=== PATIENT | female | born 1970 | race African-American/Black ===

== ENCOUNTER 2021-11-20 07:25 | Outpatient (CLI) | payer OTHER ==
[~2021-11-20] VITALS: Ht 160 cm; Wt 92.3 kg
[~2021-11-20 07:25] MED LIST: ALLEGRA 60MG TA60 MG PO; MASON NATURAL2000 IU PO; METOPROLOL; NORVASC; NORVASC 10MG10 MG PO; PRENATAL1 TA1 PO; SINGULAIR 110 MG/TAB PO; TOPROL XL100 MG PO; VITAMIN D; [UNRECOGNIZED DRUG - OTHER] PO
[2021-11-20 08:09] LABS: HEMOGLOBIN 10.9 g/dl (12.5-16.0); MEAN CELL VOLUME 81 fl (80.0-100.0); MEAN CORPUSCULAR HEMOGLOBIN 27 pg (27-31); MEAN CORPUSCULAR HGB CONC 33 g/dl (33.0-37.0); MEAN PLATELET VOLUME 10.2 fl (7.4-10.4); PLATELET COUNT 183 K/mm3 (130-400); RED BLOOD COUNT 4.12 M/mm3 (4.10-5.30); REDCELL DISTRIBUTION WIDTH-CV 14.6 % (11.5-14.5)
[2021-11-20 08:11] LABS: HEMATOCRIT 33.3 % (37.0-47.0)
[2021-11-20 08:16] LABS: INR 1.1 (0.8-3.0); PROTHROMBIN TIME 11.9 SECONDS (9.7-12.8)
[2021-11-20 08:21] LABS: CALCIUM 9.3 mg/dL (8.4-10.2); CREATININE, serum 0.82 mg/dL (0.57-1.11); POTASSIUM 3.7 mmol/L (3.5-4.5)
[2021-11-20] MEDS ORDERED: HYGROTON 2525 MG/TAB PO (08:21)
[2021-11-20] MEDS ORDERED: NEURONTIN300 MG/CAP PO (08:23)
[2021-11-20] MEDS ORDERED: ZYRTEC 10MG10 MG PO (08:23)
[2021-11-20] MEDS ORDERED: FLONASEALLERGY NS (08:23)
[2021-11-20] MEDS ORDERED: ULTRAM 50MG TAB50 MG PO (08:24)
[2021-11-20] MEDS ORDERED: GLUCOPHAGE1000 MG PO (08:24)
[2021-11-20] MEDS ORDERED: CRESTOR5 MG PO (08:24)
[2021-11-20] MEDS ORDERED: EPIPEN 2-PAK1 MG/ML IM (08:25)
[2021-11-20] MEDS ORDERED: NITROGLYCE0.4 MG/Ac2 TL (08:26)
[2021-11-20] MEDS ORDERED: LIDODERM 5% PATC1 EA TP (08:26)
[2021-11-20 08:36] VITALS: BP 139/75; PULSE 64
[2021-11-20 09:20] VITALS: BP 115/95; PULSE 61
[2021-11-20 09:30] VITALS: BP 134/72; PULSE 52
[2021-11-20 09:45] VITALS: BP 145/71; PULSE 56
[2021-11-20 10:00] VITALS: BP 132/74; PULSE 55
[2021-11-20 10:15] VITALS: BP 140/68; PULSE 48
--- NOTE | 2021-11-20 10:22 | NUR ---
DC instructions reviewed with pt and , both express understanding. Pt has tolerated PO fluids without issue. She has denied desire for food prior to discharge. She is steady on feet in room. INT DC'd with catheter inact. She is assisted out to 's car by wheelchair.
== END 2021-11-20 10:30 | disposition home or self-care (01) ==
LOC: COL.RAD 07:25
PROVIDERS: Internal Medicine Cardiovascular Disease
DX: Q21.1 Atrial septal defect (principal); I35.1 Nonrheumatic aortic (valve) insufficiency
CPT/HCPCS: J2704